=== PATIENT | female | born 1995 | race Caucasian/White ===

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

== ENCOUNTER 2018-07-15 19:32 | Emergency (ER) | payer SELFPAY ==
[2018-07-15 19:42] VITALS: TEMP 99.1; BMI 20.6
[2018-07-15] MEDS ORDERED: SODIUM CHLORIDE 1,000 ML IV STA (20:02)
[2018-07-15] MEDS ORDERED: ONDANSETRON 4 MG/2 ML VIAL IVPUSH ONE (20:02)
[2018-07-15] MEDS ORDERED: ONDANSETRON 4 MG/2 ML VIAL ONE (20:09)
[2018-07-15 20:37] LABS: BASO % 0.6 % (0-2.0); EOS % 0.6 % (0-4.5); HEMATOCRIT 42.1 % (32.4-45.2); HEMOGLOBIN 14.2 GM/dl (10.7-15.3); LYMPH % 7.3 % (8-40); MCH 31.4 pg (25.7-33.7); MCHC 33.8 g/dl (32.0-36.0); MEAN CELL VOLUME 92.9 fl (80-96); MEAN PLT VOLUME 8.8 fl (7.5-11.1); MONO % 3.9 % (3.8-10.2); NEUT % 87.6 % (42.8-82.8); PLATELET COUNT 301 K/MM3 (134-434); RBC 4.54 M/mm3 (3.60-5.2); RDW 12.3 % (11.6-15.6); WHITE BLOOD COUNT 10.7 K/mm3 (4.0-10.8)
[2018-07-15 20:47] LABS: ALBUMIN 4.3 g/dl (3.4-5.0); ALK PHOS 59 U/L (45-117); ANION GAP 12 MMOL/L (8-16); BLOOD UREA NITROGEN 9 mg/dl (7-18); CALCIUM 9.1 mg/dl (8.5-10); CHLORIDE 101 mmol/L (98-107); CO2 25 mmol/L (21-32); CREATININE 0.6 mg/dl (0.55-1.3); GLUCOSE,RANDOM 99 mg/dl (74-106); POTASSIUM 4.3 mmol/L (3.5-5.1); SGOT/AST 21 U/L (15-37); SGPT/ALT 15 U/L (13-61); SODIUM 138 mmol/L (136-145); TOT PROT 7.6 g/dl (6.4-8.2)
[2018-07-15 20:49] LABS: HCG,QUALITATIVE URINE Negative
[2018-07-15] MEDS ORDERED: REFRIGERATED ANITBIOTICS ONE (21:20)
[2018-07-15 21:36] LABS: EPITHELIAL CELLS FEW /hpf
[2018-07-15 21:51] VITALS: BP 100/63; PULSE 90
--- NOTE | 2018-07-16 05:01 | PDOC ---
Documentation entered by Antonia Saleh SCRIBE, acting as scribe for Aspen Dominique MD. Aspen Dominique MD: This documentation has been prepared by the claudineibeDelfino Lincy, SCRIBE, under my direction and personally reviewed by me in its entirety. I confirm that the documentation accurately reflects all work, treatment, procedures, and medical decision making performed by me. History of Present Illness - General Chief Complaint: Nausea/Vomiting Stated Complaint: N/V/D Time Seen by Provider: 07/15/18 19:35 History Source: Patient Exam Limitations: No Limitations - History of Present Illness Initial Comments: 07/15/18 21:17 The patient is a 23-year-old female with a past medical history significant for asthma (uses nebulizer as needed) presents to the emergency department with vomiting and diarrhea. The patient reports she woke up today with abdominal pain , nausea with multiple episodes of nonbloody-bilious vomiting and multiple bouts of loose, watery, nonbloody-melanotic diarrhea. The patient states she was unable to tolerate PO secondary to the vomiting. The patient reports an additional complaint of chest tightness, which was relieved with nebulizer treatment. Denies fever or chills. Denies known sick contact or intake of unusual food. Allergies: NKDA Social history: No reported use of tobacco, alcohol or recreational drugs. Past History - Past Medical History Allergies/Adverse Reactions: Allergies Allergy/AdvReac Type Severity Reaction Status Date / Time No Known Allergies Allergy Verified 09/17/16 00:23 Home Medications: Ambulatory Orders Ondansetron [Zofran Odt -] 4 mg SL TID PRN #12 od.tablet 07/15/18 Asthma: Yes - Immunization History Immunization Up to Date: Yes - Suicide/Smoking/Psychosocial Hx Smoking Status: No Smoking History: Never smoked Have you smoked in the past 12 months: No Number of Cigarettes Smoked Daily: 0 Cigars Per Day: 0 Hx Alcohol Use: No Drug/Substance Use Hx: No Review of Systems - Review of Systems Able to Perform ROS?: Yes Comments:: 07/15/18 21:18 GENERAL/CONSTITUTIONAL: No fever or chills. No weakness. HEAD, EYES, EARS, NOSE AND THROAT: No change in vision. No ear pain or discharge. No sore throat. CARDIOVASCULAR: +chest tightness earlier today, currently no tightness. No chest pain or shortness of breath. RESPIRATORY: No cough, wheezing, or hemoptysis. GASTROINTESTINAL: +abdominal pain, nausea, vomiting and diarrhea. No constipation. GENITOURINARY: No dysuria, frequency, or change in urination. MUSCULOSKELETAL: No joint or muscle swelling or pain. No neck or back pain. SKIN: No rash NEUROLOGIC: No headache, vertigo, loss of consciousness, or change in strength/ sensation. ENDOCRINE: No increased thirst. No abnormal weight change. HEMATOLOGIC/LYMPHATIC: No anemia, easy bleeding, or history of blood clots. ALLERGIC/IMMUNOLOGIC: No hives or skin allergy. *Physical Exam - Physical Exam Comments: 07/15/18 21:18 GENERAL: Awake, alert, and fully oriented, in no acute distress HEAD: No signs of trauma EYES: PERRLA, EOMI, sclera anicteric, conjunctiva clear ENT: +dry mucous membranes. Auricles normal inspection, hearing grossly normal, nares patent. NECK: Normal ROM, supple, no lymphadenopathy, JVD, or masses LUNGS: Breath sounds equal, clear to auscultation bilaterally. No wheezes, and no crackles HEART: Regular rate and rhythm, normal S1 and S2, no murmurs, rubs or gallops ABDOMEN: Soft, nontender, normoactive bowel sounds. No guarding, no rebound. No masses EXTREMITIES: Normal range of motion, no edema. No erythema or tenderness. DP/PT pulses 2+ and symmetric. Warm and well perfused. NEUROLOGICAL: Moves all extremities. Normal speech, normal gait SKIN: Warm, Dry, normal turgor, no rashes or lesions noted. ED Treatment Course - LABORATORY CBC & Chemistry Diagram: 07/15/18 20:01 07/15/18 20:01 Medical Decision Making - Medical Decision Making As noted above, this 23 y.o female presented with one day hx of nausea/vomiting/ diarrhea. No significant tenderness on abdominal exam. CBC/Chemistry profile/UA/PGU performed. Lab values essentially normal except for 4+ ketones in UA.. PGU is negative The patient received 2 liters NS IV and 4 mg Zofran IV. The patient felt significantly better after IV hydration and IV Zofran. She was given 8 oz water fluid challenge without further nausea/vomiting. She was discharged with advice to maintain clear liquid diet with slow advancemant to solids. Zofran ODT 4mg can be used up to 3 X a day for nausea( prescription for 12 tabs sent to her pharmacy) *DC/Admit/Observation/Transfer Diagnosis at time of Disposition: Acute gastroenteritis - Discharge Dispostion Disposition: HOME Condition at time of disposition: Stable - Prescriptions Prescriptions: Ondansetron [Zofran Odt -] 4 mg SL TID PRN #12 od.tablet PRN Reason: Nausea - Referrals - Patient Instructions Printed Discharge Instructions: DI for Viral Gastroenteritis -- Adult Additional Instructions: clear liquids only for next 2 meals, advance diet cautiously Zofran ODT 4mg up to 3 X a day as needed for nausea return to ER or see your doctor if you have persistent vomiting or develop fever /abdominal pain followup with your doctor within the next 5 days - Post Discharge Activity
== END 2018-07-15 21:53 | disposition home or self-care (01) ==
LOC: FER 19:32
PROC: 3E033GC Introduction of Other Therapeutic Substance into Peripheral Vein, Percutaneous Approach (ICD-10-PCS; principal; 2018-07-15)
PROC: 3E0337Z Introduction of Electrolytic and Water Balance Substance into Peripheral Vein, Percutaneous Approach (ICD-10-PCS; 2018-07-15)
DX: K52.9 Noninfective gastroenteritis and colitis, unspecified (principal); J45.909 Unspecified asthma, uncomplicated
CPT/HCPCS: 36415; 80053; 81003; 81015; 84703; 85025; 99283-25; J7030

== ENCOUNTER 2018-12-10 20:35 | Emergency (ER) | payer OTHER ==
[2018-12-10 20:46] VITALS: TEMP 99; BMI 20.6
--- NOTE | 2018-12-10 20:59 | PDOC ---
History of Present Illness - General Chief Complaint: ,Possible Stated Complaint: VAGINAL BLEEDING Time Seen by Provider: 12/10/18 20:59 History Source: Patient - History of Present Illness Initial Comments: 12/10/18 20:59 Ana Becerra is a 23F @6 weeks presenting with PMH PCOS and one prior miscarriage in April 2018 presenting with one day of vaginal bleeding. Patient is otherwise asymptomatic, but today reports having some vaginal bleeding, not much, <1 pad spotting, appears like a normal period for her. Denies fever, chills, chest pain, SOB, cramps, abd pain, flank pain, C/D, dizziness, or any urinary symptoms. LMP October 31, periods are regular and not heavy, has been OBGYN last week and is confirmed to be ~6 weeks . Has history of miscarriage last April, which she is concerned about today. Otherwise denies other vaginal discharge. Past History - Past Medical History Allergies/Adverse Reactions: Allergies Allergy/AdvReac Type Severity Reaction Status Date / Time No Known Allergies Allergy Verified 09/17/16 00:23 Home Medications: Ambulatory Orders NK [No Known Home Medication] 12/10/18 Asthma: Yes COPD: No - Immunization History Immunization Up to Date: Yes - Psycho Social/Smoking Cessation Hx Smoking Status: No Smoking History: Never smoked Have you smoked in the past 12 months: No Number of Cigarettes Smoked Daily: 0 Cigars Per Day: 0 Hx Alcohol Use: No Drug/Substance Use Hx: No Review of Systems - Review of Systems Constitutional: No: Chills, Fever HEENTM: No: Blurred Vision, Recent change in vision, Throat Pain, Difficulty Swallowing Respiratory: No: Cough, Shortness of Breath Cardiac (ROS): No: Chest Pain, Lightheadedness, Palpitations, Syncope ABD/GI: No: See HPI, Constipated, Diarrhea, Nausea, Vomiting : Yes: Other (light vaginal bleeding). No: Burning, Dysuria, Discharge, Frequency, Flank Pain, Hematuria, Incontinence Musculoskeletal: No: Symptoms Reported Integumentary: No: Symptoms Reported Neurological: No: Symptoms reported Endocrine: No: Symptoms Reported Hematologic/Lymphatic: No: Symptoms Reported All Other Systems: Reviewed and Negative *Physical Exam - Vital Signs Last Vital Signs Temp Pulse Resp BP Pulse Ox 99.0 F 97 H 19 98/58 L 98 12/10/18 20:43 12/10/18 20:43 12/10/18 20:43 12/10/18 20:43 12/10/18 20:43 - Physical Exam General Appearance: Yes: Nourished, Appropriately Dressed, Thin. No: Apparent Distress HEENT: positive: EOMI, JAYE, Normal Voice, Symmetrical. negative: Scleral Icterus (R), Scleral Icterus (L) Neck: positive: Supple. negative: Lymphadenopathy (R), Lymphadenopathy (L) Respiratory/Chest: positive: Lungs Clear, Normal Breath Sounds. negative: Chest Tender, Respiratory Distress, Accessory Muscle Use, Crackles, Rales, Rhonchi Cardiovascular: positive: Regular Rhythm, Regular Rate. negative: Murmur Gastrointestinal/Abdominal: positive: Normal Bowel Sounds, Flat, Soft. negative : Tender (no ), Organomegaly, Guarding, Rebound Musculoskeletal: positive: Normal Inspection. negative: CVA Tenderness Extremity: positive: Normal Capillary Refill, Normal Inspection, Normal Range of Motion. negative: Tender, Pedal Edema, Swelling Integumentary: positive: Normal Color, Dry, Warm Neurologic: positive: Alert, Normal Mood/Affect, Normal Response ED Treatment Course - LABORATORY CBC & Chemistry Diagram: 12/10/18 21:10 12/10/18 21:28 Medical Decision Making - Medical Decision Making 12/10/18 20:59 Ana Becerra is a 23F @6 weeks presenting with PMH PCOS and one prior miscarriage in April 2018 presenting with one day of vaginal bleeding. Patient is otherwise symptomatic with a known and some mild spotting. Low chance of ectopic given known . Mild vaginal bleeding is normal in the first trimester, but given history of miscarriage needs US evaluation of fetus to determine status of and possible inevitable vs. threatened . Will evaluate via: CBC CMP T/S UA/UC beta quant serum preg TVUS Patient is requesting female provider to perform pelvic exam if needed, discussed that I will attempt to find one per patient preference. Dr. Garcia agrees to perform exam if needed. 12/11/18 00:29 beta-hCG 61983 US results show: single IUP without cardiac motion, possibly due to early vs. miscarriage. Needs f/u US and repeat B-hCG to confirm. Will discuss with patient about results and recommend seeing her OBGYN in the next 2 days for further evaluation. Discharge - Discharge Information Problems reviewed: Yes Clinical Impression/Diagnosis: Vaginal bleeding affecting early , and not yet delivered in first trimester Condition: Stable - Admission No - Follow up/Referral Referrals: Leeann Bass MD [Primary Care Provider] - - Patient Discharge Instructions Patient Printed Discharge Instructions: DI for Vaginal Bleeding During Additional Instructions: Today you were evaluated for vaginal bleeding. We obtained labs that show that confirm that [place] [address]. Your ultrasound results are inconclusive for miscarriage, show a fetus without a pulse, but you may just be too early to see a heartbeat on the ultrasound. Please return to see your OBGYN in the next 2 days to get a repeat ultrasound and labs tests to evaluate your and your baby further. If you experience further vaginal bleeding greater than 2 pads an hour, feel abdominal pain, dizziness, palpitations, shortness of breath, fevers/chills, or any other new or concerning symptoms, please return to the closest emergency room immediately. - Post Discharge Activity
[2018-12-10 21:22] LABS: BASO % 0.7 % (0-2.0); EOS % 1.7 % (0-4.5); HEMATOCRIT 36.7 % (32.4-45.2); HEMOGLOBIN 12.3 GM/dL (10.7-15.3); LYMPH % 26.1 % (8-40); MCH 30.7 pg (25.7-33.7); MCHC 33.6 g/dl (32.0-36.0); MEAN CELL VOLUME 91.6 fl (80-96); MEAN PLT VOLUME 8.9 fl (7.5-11.1); MONO % 3.3 % (3.8-10.2); NEUT % 68.2 % (42.8-82.8); PLATELET COUNT 274 K/MM3 (134-434); RBC 4.01 M/mm3 (3.60-5.2); RDW 14.1 % (11.6-15.6); WHITE BLOOD COUNT 9.1 K/mm3 (4.0-10.0)
--- NOTE | 2018-12-10 21:40 | PDOC ---
Attending Attestation - Resident Resident Name: Mauro Guillaume - ED Attending Attestation I have performed the following: I have examined & evaluated the patient, The case was reviewed & discussed with the resident, I agree w/resident's findings & plan, Exceptions are as noted - HPI HPI: 12/10/18 21:39 Ms Becerra is a 23 yo F h/o PCOS who presents to the ER due to vaginal bleeding She is a @6 weeks (LMP Oct 31) presenting with one day of vaginal bleeding. No abdominal pain or cramping Pt has used a single pad today Given history of miscarriage, pt wanted to be evaluated for this PMH: denies PSH: denies Meds: denies ALL: NKDA Social: denies alcohol, drug, cigarette use 12/10/18 23:06 - Physicial Exam PE: 12/10/18 21:39 GENERAL: The patient is in no acute distress. HEAD: Normal EYES: PERRLA, EOMI, sclera anicteric, conjunctiva clear. ENT: Ears normal, nares patent, oropharynx clear without exudates. Moist mucous membranes. NECK: Normal range of motion, supple LUNGS: Breath sounds equal, clear to auscultation bilaterally. No wheezes, and no crackles. HEART:Regular rate and rhythm, normal S1 and S2 without murmur, rub or gallop. ABDOMEN: Soft, nontender, normoactive bowel sounds. PELVIC: per Dr Guillaume EXTREMITIES: Normal range of motion NEUROLOGICAL: Cranial nerves II through XII grossly intact. Normal speech. No focal neurological deficits. MUSCULOSKELETAL: Back non-tender to palpation SKIN: Warm, Dry, normal turgor, no rashes or lesions noted. 12/10/18 23:09 - Medical Decision Making 12/10/18 23:09 23 yo F presenting with a complaint of 1st trimester vaginal bleeding Laboratory Tests 12/10/18 12/10/18 21:10 21:28 WBC 9.1 Hgb 12.3 Hct 36.7 Plt Count 274 BUN 9.0 Creatinine 0.7 Beta HCG, Quant 32646.4 US pending 12/11/18 00:35 Laboratory Tests 04/12/18 13:50 Blood Type O POSITIVE US: COMPARISON: None. FINDINGS: Ultrasound :Uterus is anteverted and measures 8.2centimeters in length. There is a single IUP with estimated gestational age of 6weeks and 1days. There is no cardiac motion which may be secondary to very early . There is no subchorionic bleed. The right ovary measures 3.2centimeters in length and appears normal. The left ovary measures 3.9centimeters in length and appears normal. There is no significant free fluid. Pelvic duplex: There is normal arterial and venous flow in both ovaries. IMPRESSION: Single IUP without cardiac motion, possibly due to very early . Recommend follow-up sonography to establish viability. Clinical impression: Threatened AB, initial presentation Pt asked to follow up with OB on Wednesday for repeat BHCG and US Return to the ER for severe abdominal pain/pelvic pain, saturating 2 pads per hour x 2 hours
[2018-12-10 22:17] LABS: BILIRUBIN,TOTAL 0.3 mg/dL (0.2-1); CALCIUM 8.9 mg/dL (8.5-10.1); CREATININE 0.7 mg/dL (0.55-1.3); POTASSIUM 3.9 mmol/L (3.5-5.1); TOT PROT 7.5 g/dl (6.4-8.2)
[2018-12-10 23:00] LABS: EPI CELLS 2.8 /HPF (0-5/HPF); HYALINE CASTS 8 /lpf (0-8); URINE APPEARANCE CLEAR; URINE BACTERIA 30.3 /hpf (NEGATIVE); URINE BILIRUBIN NEGATIVE (NEGATIVE); URINE COLOR DK YELLOW; URINE GLUCOSE (UA) NEGATIVE (NEGATIVE); URINE KETONE TRACE (NEGATIVE); URINE LEUK ESTERASE NEGATIVE (NEGATIVE); URINE NITRITE NEGATIVE (NEGATIVE); URINE PROTEIN TRACE (NEGATIVE); URINE RBC 46 /hpf (0-4); URINE WBC 1 /hpf (0-5)
[2018-12-11 00:43] VITALS: BP 105/64; PULSE 78
== END 2018-12-11 00:39 | disposition home or self-care (01) ==
LOC: JER 20:35
DX: O26.891 Other specified pregnancy related conditions, first trimester (principal); O20.8 Other hemorrhage in early pregnancy; O99.281 Endocrine, nutritional and metabolic diseases complicating pregnancy, first trimester; E28.2 Polycystic ovarian syndrome; Z3A.01 Less than 8 weeks gestation of pregnancy
CPT/HCPCS: 36415; 76817-TC; 80053; 81003; 84702; 84703; 85025; 87086; 99283-25

== ENCOUNTER 2022-03-03 13:11 | Emergency (ER) | payer OTHER ==
[2022-03-03 13:39] VITALS: BMI 23.2
[2022-03-03] MEDS ORDERED: diazePAM CARPU-JECT 10 MG/2 ML DISP.SYRIN IVPUSH ONE (14:41)
[2022-03-03] MEDS ORDERED: ACETAMINOPHEN 325 MG TABLET (FP) PO ONE (14:41)
[2022-03-03] MEDS ORDERED: diazePAM CARPU-JECT 10 MG/2 ML DISP.SYRIN ONE (14:59)
[2022-03-03] MEDS ORDERED: ACETAMINOPHEN 325 MG TABLET (FP) ONE (15:00)
[2022-03-03] MEDS ORDERED: morphine CARPU-JECT 4 MG/1 ML DISP.SYRIN IVPUSH ONE (15:38)
[2022-03-03 15:46] LABS: BASO % 0.5 % (0-2.0); EOS % 1.4 % (0-4.5); HEMATOCRIT 41.4 % (32.4-45.2); HEMOGLOBIN 13.7 GM/dL (10.7-15.3); LYMPH % 17.2 % (8-40); MCH 31.1 pg (25.7-33.7); MCHC 33.2 g/dl (32.0-36.0); MEAN CELL VOLUME 93.7 fl (80-96); MEAN PLT VOLUME 8.6 fl (7.5-11.1); MONO % 5.2 % (3.8-10.2); NEUT % 75.7 % (42.8-82.8); PLATELET COUNT 288 10^3/uL (134-434); RBC 4.42 M/mm3 (3.60-5.2); RDW 13.8 % (11.6-15.6); WHITE BLOOD COUNT 9.9 K/mm3 (4.0-10.0)
[2022-03-03 16:12] LABS: BLOOD UREA NITROGEN 6.6 mg/dL (7-18); CALCIUM 9.4 mg/dL (8.5-10.1)
[2022-03-03 16:13] LABS: ALBUMIN 4.1 g/dl (3.4-5.0)
[2022-03-03 16:17] LABS: TOT PROT 7.6 g/dl (6.4-8.2)
[2022-03-03 16:19] LABS: CREATININE 0.6 mg/dL (0.55-1.3)
[2022-03-03 16:20] LABS: BILIRUBIN,TOTAL 0.8 mg/dL (0.2-1)
[2022-03-03] MEDS ORDERED: KETOROLAC TROMETHAMINE 15 MG/ML VIAL IVPUSH ONE (18:26)
[2022-03-03] MEDS ORDERED: KETOROLAC TROMETHAMINE 15 MG/ML VIAL ONE (18:27)
[2022-03-03 18:43] VITALS: BP 101/68; PULSE 77; RESP 18; TEMP 98
== END 2022-03-03 18:43 | disposition home or self-care (01) ==
LOC: JERFT 13:11
PROC: 3E033NZ Introduction of Analgesics, Hypnotics, Sedatives into Peripheral Vein, Percutaneous Approach (ICD-10-PCS; principal; 2022-03-03)
PROC: 3E0333Z Introduction of Anti-inflammatory into Peripheral Vein, Percutaneous Approach (ICD-10-PCS; 2022-03-03)
PROC: 3E033NZ Introduction of Analgesics, Hypnotics, Sedatives into Peripheral Vein, Percutaneous Approach (ICD-10-PCS; 2022-03-03)
DX: M54.2 Cervicalgia (principal)
CPT/HCPCS: 36415; 70450-TC; 70496-TC; 70498-TC; 80053; 84703; 85025; 99285-25; Q9967

== ENCOUNTER 2022-08-04 09:39 | Emergency (ER) | payer OTHER ==
[2022-08-04 09:43] VITALS: BMI 22.2
[2022-08-04 11:42] LABS: BASO % 0.7 % (0-2.0); EOS % 2.1 % (0-4.5); HEMOGLOBIN 13.7 GM/dL (10.7-15.3); LYMPH % 21.6 % (8-40); MCH 32.5 pg (25.7-33.7); MCHC 36.1 g/dl (32.0-36.0); MEAN CELL VOLUME 90.1 fl (80-96); MEAN PLT VOLUME 9.3 fl (7.5-11.1); MONO % 3.8 % (3.8-10.2); NEUT % 71.8 % (42.8-82.8); PLATELET COUNT 270 10^3/uL (134-434); RBC 4.22 M/mm3 (3.60-5.2); RDW 13.1 % (11.6-15.6); WHITE BLOOD COUNT 8.3 K/mm3 (4.0-10.0)
[2022-08-04 12:02] LABS: PH,URINE 8.5 (5.0-8.0); URINE APPEARANCE TURBID; URINE BILIRUBIN NEGATIVE (NEGATIVE); URINE COLOR YELLOW; URINE GLUCOSE (UA) NEGATIVE (NEGATIVE); URINE KETONE NEGATIVE (NEGATIVE); URINE LEUK ESTERASE NEGATIVE (NEGATIVE); URINE NITRITE NEGATIVE (NEGATIVE); URINE PROTEIN NEGATIVE (NEGATIVE); URINE UROBILINOGEN 0.2 mg/dL (0.2-1.0)
[2022-08-04 12:09] LABS: POTASSIUM 3.9 mmol/L (3.5-5.1)
[2022-08-04 12:13] LABS: ALBUMIN 4.2 g/dl (3.4-5.0); BLOOD UREA NITROGEN 5.2 mg/dL (7-18); CALCIUM 10.3 mg/dL (8.5-10.1)
[2022-08-04 12:15] LABS: CREATININE 0.6 mg/dL (0.55-1.3)
[2022-08-04 12:17] LABS: BILIRUBIN,TOTAL 0.6 mg/dL (0.2-1)
[2022-08-04 14:02] VITALS: TEMP 98
[2022-08-04 14:47] VITALS: RESP 20
== END 2022-08-04 14:00 | disposition left against medical advice (07) ==
LOC: JER 09:39
DX: O26.891 Other specified pregnancy related conditions, first trimester (principal); R10.33 Periumbilical pain; R10.2 Pelvic and perineal pain; O21.9 Vomiting of pregnancy, unspecified; O41.8X10 Other specified disorders of amniotic fluid and membranes, first trimester, not applicable or unspecified; O46.8X1 Other antepartum hemorrhage, first trimester; Z3A.08 8 weeks gestation of pregnancy
CPT/HCPCS: 36415; 76817-TC; 80053; 81003; 83690; 84702; 85025; 87086; 87491; 87591; 99284-25

== ENCOUNTER 2022-09-05 17:06 | Emergency (ER) | payer OTHER ==
[2022-09-05 17:32] VITALS: BP 95/64; PULSE 87; RESP 18; TEMP 98.5; BMI 23.2
[2022-09-05 17:39] LABS: HEMATOCRIT 36.1 % (32.4-45.2); HEMOGLOBIN 12.7 G/dL (10.7-15.3); MCH 32.7 pg (25.7-33.7); MCHC 35.2 g/dl (32.0-36.0); MEAN PLT VOLUME 8.7 fl (7.5-11.1); RBC 3.88 10^6/uL (3.60-5.2); RDW 13.2 % (11.6-15.6); WHITE BLOOD COUNT 9.4 10^3/uL (4.0-10.8)
[2022-09-05 17:56] LABS: BILIRUBIN,TOTAL 0.5 mg/dl (0.2-1); BLOOD UREA NITROGEN 7.9 mg/dl (7-18); CALCIUM 9.3 mg/dl (8.5-10.1); CREATININE 0.6 mg/dl (0.6-1.3); SGOT/AST 13.3 U/L (15-37); SGPT/ALT 7.8 U/L (7-52); TOT PROT 6.5 g/dl (6.4-8.2)
== END 2022-09-05 18:56 | disposition home or self-care (01) ==
LOC: FER 17:06
DX: O41.8X10 Other specified disorders of amniotic fluid and membranes, first trimester, not applicable or unspecified (principal); O20.9 Hemorrhage in early pregnancy, unspecified; Z3A.12 12 weeks gestation of pregnancy
CPT/HCPCS: 36415; 76801-TC; 80053; 81003; 84702; 85027; 99284-25

== ENCOUNTER 2023-03-06 07:35 | Inpatient (IN) | payer OTHER ==
[2023-03-06] MEDS ORDERED: ELECTROLYTE-148 SOLN 1,000 ML IV SCH ×2 (08:00→19:30)
[2023-03-06] MEDS ORDERED: DINOPROSTONE 10 MG VAGINAL SUPPOSITORY VG ONE (08:45)
[2023-03-06 08:52] VITALS: BMI 26.2
[2023-03-06 10:05] LABS: BASO % 0.4 % (0-2.0); EOS % 0.5 % (0-4.5); HEMATOCRIT 33.2 % (32.4-45.2); HEMOGLOBIN 11.2 GM/dL (10.7-15.3); LYMPH % 16.8 % (8-40); MCH 30.3 pg (25.7-33.7); MCHC 33.6 g/dl (32.0-36.0); MEAN CELL VOLUME 90.2 fl (80-96); MEAN PLT VOLUME 9.5 fl (7.5-11.1); MONO % 5.7 % (3.8-10.2); NEUT % 76.6 % (42.8-82.8); PLATELET COUNT 221 10^3/uL (134-434); RBC 3.68 M/mm3 (3.60-5.2); RDW 14.9 % (11.6-15.6); WHITE BLOOD COUNT 9.7 K/mm3 (4.0-10.0)
[2023-03-06 10:14] LABS: INR 1.12 (0.83-1.09)
[2023-03-06 10:17] LABS: ACTIVATED PTT 27.1 SECONDS (25.2-36.5)
[2023-03-06 10:21] LABS: CALCIUM 8.5 mg/dL (8.5-10.1)
[2023-03-06 10:22] LABS: BLOOD UREA NITROGEN 10.4 mg/dL (7-18)
[2023-03-06 10:25] LABS: CREATININE 0.5 mg/dL (0.55-1.3)
[2023-03-06] MEDS ORDERED: OXYTOCIN 30 UNITS in 0.9% NS 30 UNIT/500 ML INFUS.BAG IVPB SCH (14:15)
[2023-03-06] MEDS ORDERED: OXYTOCIN 30 UNITS in 0.9% NS 30 UNIT/500 ML INFUS.BAG IVPB ONE (14:17)
[2023-03-06] MEDS ORDERED: PROMETHAZINE HCL 25 MG/1 ML VIAL IVPB ONE (22:17)
[2023-03-06] MEDS ORDERED: BUTORPHANOL TARTRATE 1 MG/ML VIAL IVPB PRN (22:17)
[2023-03-06] MEDS ORDERED: BUTORPHANOL TARTRATE 2 MG/ML VIAL ONE (22:22)
[2023-03-06] MEDS ORDERED: PROMETHAZINE HCL 25 MG/1 ML VIAL ONE (22:22)
[2023-03-07] MEDS ORDERED: FENTANYL/BUPIVACAINE/NS/PF - PCEA - 50 ML DISP.SYRIN EP ONE ×2 (02:23→07:06)
[2023-03-07] MEDS ORDERED: NALOXONE HCL 0.4 MG/ML VIAL IVPUSH PRN (03:04)
[2023-03-07] MEDS ORDERED: FENTANYL/BUPIVACAINE/NS/PF - PCEA - 50 ML DISP.SYRIN EP SCH (03:15)
[2023-03-07] MEDS ORDERED: CITRIC ACID/SODIUM CITRATE 30 ML UNIT-DOSE CUP PO ONE (05:50)
[2023-03-07] MEDS ORDERED: morphine SULFATE/PF 1 MG/2 ML (2cc Syringe - QUVA) ONE (08:29)
[2023-03-07] MEDS ORDERED: FENTANYL CITRATE/PF 50 MCG/ML VIAL ONE (08:29)
[2023-03-07] MEDS ORDERED: ePHEDrine SULFATE 50 MG/1 ML AMPULE ONE (08:31)
[2023-03-07] MEDS ORDERED: morphine SULFATE/PF 1 MG/2 ML (2cc Syringe - QUVA) SPIN ONE (08:37)
[2023-03-07] MEDS ORDERED: OXYTOCIN 10 UNITS/ML VIAL ONE (08:52)
[2023-03-07 09:21] LABS: CORD BASE EXCESS -0.6 mmol/L (0-2); CORD HCO3 25.4 mmHg (20-29); CORD PCO2 46.7 mmHg (30-78); CORD pH 7.354 (7.14-7.44)
[2023-03-07 09:22] LABS: CORD HCO3 25.6 mmHg (20-29); CORD PCO2 54.4 mmHg (30-78); CORD pH 7.291 (7.14-7.44)
[2023-03-07] MEDS: OXYTOCIN 20 UNITS in 0.9% NS 20 UNIT/1,000 ML INFUS.BAG IV SCH ×4 (09:30→14:27)
[2023-03-07] MEDS ORDERED: IBUPROFEN 600 MG TABLET (FP) PO PRN (09:37)
[2023-03-07] MEDS ORDERED: ONDANSETRON 4 MG/2 ML VIAL IVPUSH PRN (09:37)
[2023-03-07] MEDS ORDERED: ACETAMINOPHEN 325 MG TABLET (FP) PO PRN ×2 (09:37→13:58)
[2023-03-07] MEDS ORDERED: METHYLERGONOVINE MALEATE 0.2 MG/1 ML AMP IM PRN (13:58)
[2023-03-07] MEDS ORDERED: IBUPROFEN 800 MG/8 ML IJ IVPB PRN (13:58)
[2023-03-07] MEDS: CEFAZOLIN 1 GM in DEXTROSE 5%-WATER - 50 ML IVPB SCH (17:18)
[2023-03-08] MEDS: CEFAZOLIN 1 GM in DEXTROSE 5%-WATER - 50 ML IVPB SCH ×2 (01:28→09:25)
[2023-03-08] MEDS ORDERED: oxyCODONE HCL 5 MG TABLET PO PRN ×2 (01:58)
[2023-03-08] MEDS: IBUPROFEN 600 MG TABLET (FP) PO PRN ×2 (06:13→15:52)
[2023-03-08 08:24] LABS: BASO % 0.2 % (0-2.0); EOS % 0.5 % (0-4.5); HEMATOCRIT 27.1 % (32.4-45.2); HEMOGLOBIN 9.1 GM/dL (10.7-15.3); LYMPH % 15.1 % (8-40); MCH 30.6 pg (25.7-33.7); MCHC 33.7 g/dl (32.0-36.0); MEAN CELL VOLUME 90.9 fl (80-96); MEAN PLT VOLUME 9.8 fl (7.5-11.1); MONO % 6.3 % (3.8-10.2); NEUT % 77.9 % (42.8-82.8); PLATELET COUNT 192 10^3/uL (134-434); RBC 2.98 M/mm3 (3.60-5.2); RDW 15.1 % (11.6-15.6); WHITE BLOOD COUNT 16.9 K/mm3 (4.0-10.0)
[2023-03-08] MEDS ORDERED: BISACODYL 10 MG SUPP.RECT RC PRN (13:58)
[2023-03-08] MEDS: SIMETHICONE 80 MG TAB.CHEW (FP) PO PRN (20:40)
[2023-03-09] MEDS: SIMETHICONE 80 MG TAB.CHEW (FP) PO PRN (04:08)
[2023-03-09 08:00] VITALS: RESP 16
[2023-03-09 08:02] VITALS: BP 99/63; PULSE 88; TEMP 97.9
[2023-03-09] MEDS: IBUPROFEN 600 MG TABLET (FP) PO PRN (09:52)
== END 2023-03-09 15:57 | disposition home or self-care (01) | DRG 540 ==
LOC: JLDR 07:35 → J3W 03-07 12:30
PROVIDERS: ADMIT Obstetrics & Gynecology; ATTEND Obstetrics & Gynecology
PROC: 3E033VJ Introduction of Other Hormone into Peripheral Vein, Percutaneous Approach (ICD-10-PCS; 2023-03-06)
PROC: 10D00Z1 Extraction of Products of Conception, Low, Open Approach (ICD-10-PCS; principal; 2023-03-07)
DX: O36.5930 Maternal care for other known or suspected poor fetal growth, third trimester, not applicable or unspecified (principal); O76 Abnormality in fetal heart rate and rhythm complicating labor and delivery; O77.9 Labor and delivery complicated by fetal stress, unspecified; O62.1 Secondary uterine inertia; Z3A.38 38 weeks gestation of pregnancy; Z37.0 Single live birth
CPT/HCPCS: 36415; 36600; 80048; 82803; 85025; 85610; 85730; 86780; 86850; 86900; 86901; 88307-TC; 94010

== ENCOUNTER 2023-04-03 15:53 | Emergency (ER) | payer OTHER ==
[2023-04-03 16:06] VITALS: BP 106/65; PULSE 75; RESP 16; TEMP 98.8; BMI 23.2
[2023-04-03 17:18] LABS: URINE MUCUS 1+
== END 2023-04-03 17:27 | disposition home or self-care (01) ==
LOC: FER 15:53
DX: G89.18 Other acute postprocedural pain (principal); R10.30 Lower abdominal pain, unspecified
CPT/HCPCS: 81003; 81015; 87086; 87186; 99283-25

== ENCOUNTER 2023-06-25 17:49 | Emergency (ER) | payer OTHER ==
[2023-06-25 18:29] VITALS: BP 133/97; PULSE 88; RESP 18; TEMP 98.8; BMI 28.5
== END 2023-06-25 18:58 | disposition home or self-care (01) ==
LOC: FER 17:49
DX: R42 Dizziness and giddiness (principal)
CPT/HCPCS: 82962; 99282-25